=== PATIENT | female | born 1980 | race Caucasian/White ===

== ENCOUNTER 2018-11-08 18:52 | Emergency (ER) | payer MEDICAID ==
[~2018-11-08] VITALS: Ht 165.1 cm; Wt 50.0 kg
--- NOTE | 2018-11-08 19:11 | NUR ---
[facility] case # [id number].
[2018-11-08] MEDS ORDERED: ondansetron/PF 4mg/2ml inj IV ONE ×2 (19:20→20:25)
[2018-11-08] MEDS ORDERED: morphine 4 MG/ML inj SYRINge IV ONE (19:20)
--- NOTE | 2018-11-08 19:26 | NUR ---
assisting RN with pt care, medicated per MD for pain to left forearm, [place] [employer] at bedside to talk with pt
--- NOTE | 2018-11-08 19:43 | NUR ---
[employer] at beside. patient is raising her voice.
[2018-11-08] MEDS ORDERED: LORazepam 2 mg/ml vial IV ONE (20:20)
[2018-11-08] MEDS ORDERED: fentaNYL/PF 50MCG/1 ML 2ML syringe IV ONE (20:20)
[2018-11-08] MEDS ORDERED: propofol 10mg/ml 20ml vial IV ONE (20:25)
[2018-11-08] MEDS ORDERED: ketorolac trometh. 30mg/ml inj. IV ONE (20:30)
--- NOTE | 2018-11-08 20:40 | NUR ---
As I covered Nacho for a break, I attempted to medicate the patient with ordered ativan, fentanyl, zofran, and toradol. The patient was yelling at me while I was in the room attempting to medicate her. First she wanted her pain medication instantaneously. I explained the medications I was going to give and that I had to scan them, draw them, and verify the dose. She then started demanding that I call her for her. I explained that I would happily contact her but I could only do one task at a time. I asked her which she wanted first and she began screaming that no one is communicating with her and that, "you're an asshole. It's your job to do what I say. You're fired!" I double checked before leaving that she did not want me to give her pain medication before I left to which she replies, "fuck yourself!" Medications passed to FRAN Moon who is attempting to administer them.
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
[2018-11-08 21:39] VITALS: BP 97/51
--- NOTE | 2018-11-08 21:48 | NUR ---
ANISHA CALLED AT [phone]
== END 2018-11-08 22:23 | disposition home or self-care (01) ==
LOC: ER 18:53
DX: S52.592A Other fractures of lower end of left radius, initial encounter for closed fracture (principal); Y04.0XXA Assault by unarmed brawl or fight, initial encounter; Y93.89 Activity, other specified; Y92.89 Other specified places as the place of occurrence of the external cause; Y99.9 Unspecified external cause status
CPT/HCPCS: 25605; 73100; 96374; 96375; 96376; 99152; 99153; 99285; J1885; J2060; J2270; J2405; J2704; J3010

== ENCOUNTER 2019-01-24 11:31 | Outpatient (CLI) | payer MEDICAID | END 2019-01-24 12:09 | disposition home or self-care (01) | LOC: ORTHO 11:31 | PROVIDERS: ATTEND Orthopaedic Surgery | DX: S59.292D Other physeal fracture of lower end of radius, left arm, subsequent encounter for fracture with routine healing (principal); Z87.891 Personal history of nicotine dependence; X58.XXXD Exposure to other specified factors, subsequent encounter | CPT/HCPCS: 73110; G0463 ==

== ENCOUNTER 2019-02-15 04:08 | Emergency (ER) | payer MEDICAID, OTHER ==
[~2019-02-15] VITALS: Ht 165.1 cm; Wt 49.5 kg
[2019-02-15 05:20] VITALS: BP 109/61
== END 2019-02-15 05:27 | disposition home or self-care (01) ==
LOC: ER 04:09
DX: M79.671 Pain in right foot (principal); M25.562 Pain in left knee; Z88.1 Allergy status to other antibiotic agents; Z88.5 Allergy status to narcotic agent; X58.XXXA Exposure to other specified factors, initial encounter; Y93.01 Activity, walking, marching and hiking; Y92.89 Other specified places as the place of occurrence of the external cause; Y99.8 Other external cause status
CPT/HCPCS: 73630; 99283

== ENCOUNTER 2019-03-04 21:14 | Emergency (ER) | payer MEDICAID, OTHER ==
[~2019-03-04] VITALS: Ht 165.1 cm; Wt 50.0 kg
[2019-03-04] MEDS ORDERED: ondansetron/PF 4mg/2ml inj IV ONE (22:05)
[2019-03-04] MEDS ORDERED: LORazepam 2 mg/ml vial IV ONE (22:05)
[2019-03-04] MEDS ORDERED: normal saline 1000ML IV soln IVB ONE (22:05)
--- NOTE | 2019-03-05 00:07 | NUR ---
soraya called for transportation to [facility]
--- NOTE | 2019-03-05 00:09 | NUR ---
pt ambulated to lobby to wait for taxi cab. taxi to take pt to [facility] , pt phoned to update him her where abouts. all vss. pt with steady gait, verbalizng that she is going t=stright to [facility] amd will not drink etoh.
[2019-03-05 00:13] VITALS: BP 122/72
== END 2019-03-05 00:12 | disposition home or self-care (01) ==
LOC: ER 21:14
DX: F10.129 Alcohol abuse with intoxication, unspecified (principal); R42 Dizziness and giddiness; R06.00 Dyspnea, unspecified; R51 Headache; Z88.1 Allergy status to other antibiotic agents; Z88.5 Allergy status to narcotic agent; Y90.9 Presence of alcohol in blood, level not specified
CPT/HCPCS: 96361; 96374; 96375; 99283; J2060; J2405; J7030

== ENCOUNTER 2019-03-08 15:45 | Emergency (ER) | payer MEDICAID ==
[~2019-03-08] VITALS: Ht 165.1 cm; Wt 49.0 kg
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
[2019-03-08 17:11] VITALS: BP 122/62
== END 2019-03-08 17:10 | disposition home or self-care (01) ==
LOC: ER 15:46
DX: F10.20 Alcohol dependence, uncomplicated (principal); J02.9 Acute pharyngitis, unspecified; Z02.89 Encounter for other administrative examinations; Z88.1 Allergy status to other antibiotic agents; Z88.5 Allergy status to narcotic agent; Y90.9 Presence of alcohol in blood, level not specified
CPT/HCPCS: 99281

== ENCOUNTER 2019-04-06 23:29 | Emergency (ER) | payer MEDICAID ==
[~2019-04-06] VITALS: Ht 165.1 cm; Wt 50.0 kg
[2019-04-06 23:30] VITALS: BP 176/98
[2019-04-06] MEDS ORDERED: LORazepam 1 MG tablet PO ONE (23:55)
--- NOTE | 2019-04-07 00:12 | NUR ---
, NASH, NOTIFIED THAT PT WAS IN ED PER REQUEST OF PT. CONTACT : [phone]
== END 2019-04-07 00:39 ==
LOC: ER 23:30
DX: F10.129 Alcohol abuse with intoxication, unspecified (principal); Z59.0 Homelessness; Z88.1 Allergy status to other antibiotic agents; Z88.5 Allergy status to narcotic agent; Y90.9 Presence of alcohol in blood, level not specified
CPT/HCPCS: 99283

== ENCOUNTER 2019-04-28 08:45 | Emergency (ER) | payer MEDICAID ==
[~2019-04-28] VITALS: Ht 165.1 cm; Wt 60.0 kg
[2019-04-28 08:49] VITALS: BP 139/84
== END 2019-04-28 09:57 | disposition home or self-care (01) ==
LOC: ER 08:45
DX: M25.512 Pain in left shoulder (principal); F10.99 Alcohol use, unspecified with unspecified alcohol-induced disorder; Z59.0 Homelessness; Z88.1 Allergy status to other antibiotic agents; Z88.5 Allergy status to narcotic agent; W18.39XA Other fall on same level, initial encounter; Y93.01 Activity, walking, marching and hiking; Y92.89 Other specified places as the place of occurrence of the external cause; Y99.8 Other external cause status; Y90.9 Presence of alcohol in blood, level not specified
CPT/HCPCS: 73030; 99284

== ENCOUNTER 2019-05-16 18:26 | Emergency (ER) | payer MEDICAID | END 2019-05-16 19:29 | disposition left against medical advice (07) | LOC: ER 18:27 | DX: M25.539 Pain in unspecified wrist (principal); Z53.21 Procedure and treatment not carried out due to patient leaving prior to being seen by health care provider ==

== ENCOUNTER 2019-05-29 15:14 | Emergency (ER) | payer MEDICAID ==
[~2019-05-29] VITALS: Ht 165.1 cm; Wt 49.8 kg
[2019-05-29 15:31] VITALS: BP 126/81
== END 2019-05-29 16:40 | disposition home or self-care (01) ==
LOC: ER 15:15
DX: M25.532 Pain in left wrist (principal); F10.99 Alcohol use, unspecified with unspecified alcohol-induced disorder; Z88.1 Allergy status to other antibiotic agents; Z88.5 Allergy status to narcotic agent; X50.1XXA Overexertion from prolonged static or awkward postures, initial encounter; Y93.89 Activity, other specified; Y92.89 Other specified places as the place of occurrence of the external cause; Y99.8 Other external cause status; Y90.9 Presence of alcohol in blood, level not specified
CPT/HCPCS: 29125; 73110; 99283

== ENCOUNTER 2019-06-30 07:44 | Emergency (ER) | payer MEDICAID ==
[~2019-06-30] VITALS: Ht 165.1 cm; Wt 50.0 kg
[2019-06-30 07:51] VITALS: BP 136/83
== END 2019-06-30 09:00 | disposition home or self-care (01) ==
LOC: ER 07:44
DX: M25.532 Pain in left wrist (principal); M79.632 Pain in left forearm; G89.29 Other chronic pain; F10.99 Alcohol use, unspecified with unspecified alcohol-induced disorder; Z88.1 Allergy status to other antibiotic agents; Z88.5 Allergy status to narcotic agent; Y90.9 Presence of alcohol in blood, level not specified
CPT/HCPCS: 73090; 99283

== ENCOUNTER 2019-09-29 16:19 | Emergency (ER) | payer MEDICAID, OTHER ==
[~2019-09-29] VITALS: Ht 165.1 cm; Wt 47.1 kg
[2019-09-29 16:27] VITALS: BP 112/81
[2019-09-29] MEDS ORDERED: ibuprofen 200mg tablet PO ONE (16:50)
== END 2019-09-29 17:21 | disposition home or self-care (01) ==
LOC: ER 16:20
DX: S09.90XA Unspecified injury of head, initial encounter (principal); S16.1XXA Strain of muscle, fascia and tendon at neck level, initial encounter; S80.01XA Contusion of right knee, initial encounter; F17.200 Nicotine dependence, unspecified, uncomplicated; Z72.89 Other problems related to lifestyle; Z79.2 Long term (current) use of antibiotics; Z88.5 Allergy status to narcotic agent; V49.69XA Unspecified car occupant injured in collision with other motor vehicles in traffic accident, initial encounter; Y93.89 Activity, other specified; Y92.89 Other specified places as the place of occurrence of the external cause; Y99.8 Other external cause status
CPT/HCPCS: 99282

== ENCOUNTER 2019-10-10 00:28 | Emergency (ER) | payer MEDICAID, OTHER ==
[~2019-10-10] VITALS: Ht 165.1 cm; Wt 47.0 kg
[2019-10-10 00:29] VITALS: BP 136/81
[2019-10-10] MEDS ORDERED: triamcinolone acetonide 40mg/ml inj IM ONE (00:45)
[2019-10-10] MEDS ORDERED: TRIA15CR61 TP (00:46)
[2019-10-10] MEDS ORDERED: PRED20TA PO (11:36)
== END 2019-10-10 01:04 | disposition home or self-care (01) ==
LOC: ER 00:28
DX: L23.7 Allergic contact dermatitis due to plants, except food (principal); Z72.89 Other problems related to lifestyle; Z88.5 Allergy status to narcotic agent; Z88.1 Allergy status to other antibiotic agents; Z79.899 Other long term (current) drug therapy
CPT/HCPCS: 96372; 99283; J3301

== ENCOUNTER 2019-10-10 10:49 | Emergency (ER) | payer MEDICAID ==
[~2019-10-10] VITALS: Ht 165.1 cm; Wt 47.0 kg
[~2019-10-10 10:49] MED LIST: TRIA15CR61 TP
[2019-10-10 10:52] VITALS: BP 123/88
[2019-10-10] MEDS ORDERED: PRED20TA PO (11:36)
== END 2019-10-10 11:47 | disposition home or self-care (01) ==
LOC: ER 10:50
DX: L23.7 Allergic contact dermatitis due to plants, except food (principal); F17.200 Nicotine dependence, unspecified, uncomplicated; Z72.89 Other problems related to lifestyle; Z88.1 Allergy status to other antibiotic agents; Z88.5 Allergy status to narcotic agent; Z79.899 Other long term (current) drug therapy
CPT/HCPCS: 99283

== ENCOUNTER 2019-11-21 14:06 | Emergency (ER) | payer MEDICAID ==
[~2019-11-21] VITALS: Ht 165.1 cm; Wt 46.0 kg
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
[2019-11-21 15:31] VITALS: BP 113/78
[2019-11-21] MEDS ORDERED: triamcinolone acetonide 40mg/ml inj IM ONE (15:50)
[2019-11-21] MEDS ORDERED: PRED20TA PO (15:50)
== END 2019-11-21 16:08 | disposition home or self-care (01) ==
LOC: ER 14:06
DX: L23.7 Allergic contact dermatitis due to plants, except food (principal); R21 Rash and other nonspecific skin eruption; M54.89 Other dorsalgia; Z72.89 Other problems related to lifestyle; Z88.1 Allergy status to other antibiotic agents; Z88.5 Allergy status to narcotic agent; Z79.899 Other long term (current) drug therapy
CPT/HCPCS: 96372; 99283; J3301

== ENCOUNTER 2021-11-07 16:13 | Emergency (ER) | payer MEDICAID ==
[~2021-11-07] VITALS: Ht 165.1 cm; Wt 52.3 kg
[2021-11-07 16:19] VITALS: BP 106/62
== END 2021-11-07 18:01 | disposition home or self-care (01) ==
LOC: ER 16:13
DX: S61.411D Laceration without foreign body of right hand, subsequent encounter (principal); F17.200 Nicotine dependence, unspecified, uncomplicated; Z88.1 Allergy status to other antibiotic agents; Z88.5 Allergy status to narcotic agent; W45.8XXD Other foreign body or object entering through skin, subsequent encounter
CPT/HCPCS: 99282

== ENCOUNTER 2021-11-27 19:54 | Emergency (ER) | payer MEDICAID ==
[~2021-11-27] VITALS: Ht 165.1 cm; Wt 47.3 kg
[2021-11-27] MEDS ORDERED: normal saline 1000ML IV soln IVB ONE (20:20)
[2021-11-27 21:02] LABS: BASOPHILS % (AUTO) 0.7 % (0-1); EOSINOPHILS # (AUTO) 0.1 X10'3 (0-0.9); EOSINOPHILS % (AUTO) 1.7 % (0-6); HEMATOCRIT 36.5 % (35.0-45.0); HEMOGLOBIN 12.2 g/dl (12.0-16.0); LYMPHOCYTES # (AUTO) 1.9 X10'3 (1.1-4.8); MEAN CORPUSCULAR HGB CONC 33.5 g/dL (33.0-36.5); MEAN CORPUSCULAR VOLUME 89.5 FL (78-98); MEAN PLATELET VOLUME 7.1 FL (7.4-10.4); MONOCYTES # (AUTO) 0.5 X10'3 (0-0.9); MONOCYTES % (AUTO) 9.9 % (2-12); NEUTROPHILS # (AUTO) 2.8 X10'3 (1.8-7.7); NEUTROPHILS % (AUTO) 51.7 % (42-75); PLATELET COUNT 274 X10'3 (140-440); RED BLOOD COUNT 4.08 X10'6 (4.20-5.60); RED CELL DISTRIBUTION WIDTH 15.9 % (11.5-14.5); WHITE BLOOD COUNT 5.4 X10'3 (4.5-11.0)
[2021-11-27 21:15] LABS: ALANINE AMINOTRANSFERASE 47 U/L (12-78); ALBUMIN 3.2 G/DL (3.4-5.0); ALBUMIN/GLOBULIN RATIO 0.9 (1.1-1.5); ALKALINE PHOSPHATASE 74 IU/L (46-116); ANION GAP 6 (8-16); ASPARTATE AMINO TRANSFERASE 71 U/L (10-37); BILIRUBIN,TOTAL 0.2 MG/DL (0.1-1.0); BLOOD UREA NITROGEN 7 MG/DL (7-18); BUN/CREATININE RATIO 10.4 (6.6-38.0); CALCIUM 7.9 MG/DL (8.5-10.1); CHLORIDE 111 MMOL/L (99-107); CREATININE 0.67 MG/DL (0.40-0.90); GLUCOSE 73 MG/DL (70-104); POTASSIUM 3.2 MMOL/L (3.5-5.1); SODIUM 146 MMOL/L (135-145); TOTAL CARBON DIOXIDE 29.2 MMOL/L (24-32); TOTAL PROTEIN 6.8 G/DL (6.4-8.2); eGFR > 90 ML/MIN
[2021-11-27] MEDS ORDERED: potassium Cl 20 mEq SR tablet PO STA (21:41)
[2021-11-27 22:05] VITALS: BP 106/74
== END 2021-11-27 22:08 | disposition home or self-care (01) ==
LOC: ER 19:54
DX: E86.0 Dehydration (principal); R42 Dizziness and giddiness; R53.1 Weakness; F17.200 Nicotine dependence, unspecified, uncomplicated; Z88.1 Allergy status to other antibiotic agents; Z88.5 Allergy status to narcotic agent
CPT/HCPCS: 36415; 80053; 85025; 99283; J7030

== ENCOUNTER 2021-12-12 12:40 | Emergency (ER) | payer MEDICAID ==
[~2021-12-12] VITALS: Ht 165.1 cm; Wt 50.0 kg
[2021-12-12 12:43] VITALS: BP 97/60
== END 2021-12-12 16:41 | disposition home or self-care (01) ==
LOC: ER 12:40
DX: M79.671 Pain in right foot (principal); M79.672 Pain in left foot; F15.10 Other stimulant abuse, uncomplicated; Z88.1 Allergy status to other antibiotic agents; Z88.5 Allergy status to narcotic agent
CPT/HCPCS: 99281

== ENCOUNTER 2022-01-05 00:33 | Emergency (ER) | payer MEDICAID ==
[~2022-01-05] VITALS: Ht 165.1 cm; Wt 45.5 kg
[2022-01-05 00:38] VITALS: BP 97/65
== END 2022-01-05 00:48 | disposition left against medical advice (07) ==
LOC: ER 00:33
DX: Z00.8 Encounter for other general examination (principal); Z53.21 Procedure and treatment not carried out due to patient leaving prior to being seen by health care provider

== ENCOUNTER 2022-01-05 14:52 | Emergency (ER) | payer MEDICAID ==
[~2022-01-05] VITALS: Ht 165.1 cm; Wt 45.9 kg
[2022-01-05 15:57] VITALS: BP 124/81
== END 2022-01-05 16:43 | disposition home or self-care (01) ==
LOC: ER 14:53
DX: Z00.00 Encounter for general adult medical examination without abnormal findings (principal); F15.20 Other stimulant dependence, uncomplicated; Z59.00 Homelessness unspecified; Z88.1 Allergy status to other antibiotic agents
CPT/HCPCS: 99281

== ENCOUNTER 2022-01-05 17:19 | Emergency (ER) | payer MEDICAID ==
[~2022-01-05] VITALS: Ht 165.1 cm; Wt 45.5 kg
[2022-01-05 17:26] VITALS: BP 119/83
== END 2022-01-05 18:09 | disposition home or self-care (01) ==
LOC: ER 17:21
DX: Z00.00 Encounter for general adult medical examination without abnormal findings (principal); Z88.1 Allergy status to other antibiotic agents; Z88.5 Allergy status to narcotic agent; Z59.00 Homelessness unspecified
CPT/HCPCS: 99283

== ENCOUNTER 2022-02-03 07:25 | Emergency (ER) | payer MEDICAID ==
[~2022-02-03] VITALS: Ht 165.1 cm; Wt 50.0 kg
[2022-02-03 08:11] VITALS: BP 95/58
== END 2022-02-03 09:16 | disposition left against medical advice (07) ==
LOC: ER 07:25
DX: L08.9 Local infection of the skin and subcutaneous tissue, unspecified (principal); Z53.21 Procedure and treatment not carried out due to patient leaving prior to being seen by health care provider